=== PATIENT | male | born 1935 | race Caucasian/White ===

== ENCOUNTER → 2016-12-04 | Outpatient (CLI) | payer MEDICARE, BC ==
[~2016-12-04] VITALS: Ht 172.7 cm; Wt 87.1 kg
[~2016-12-04] MED LIST: ASPIRIN 81M81 MG/TA2 PO; COLACE 100100 MG/CAP PO; GLUCOSAMINE & C1 CA1 PO; MULTIPLE VITAMI1 CAP PO; MULTIPLE VITAMI1 TA4 PO; NORCO 325 MG-51 TAB PO; PREVAGEN PO; PYRIDIUM200 M1 PO; VITAMIN C500 MG PO; [UNRECOGNIZED DRUG - OTHER] PO
[2016-12-04 09:09] VITALS: BP 137/79; PULSE 57
[2016-12-04 10:45] VITALS: BP 158/91; PULSE 56
== END ==
LOC: COL.RAD 11-22 09:00
DX: M54.5 Low back pain (principal); M51.36 Other intervertebral disc degeneration, lumbar region
CPT/HCPCS: J3301

== ENCOUNTER 2019-10-11 16:25 | Inpatient (IN) | payer MEDICARE, BC ==
[~2019-10-11] VITALS: Ht 172.7 cm; Wt 83.5 kg
[2019-10-11 17:10] LABS: BASO % 0.7 % (0.0-2.0); EOS # 0.2 (0.0-0.7); GRAN # 2.6 (1.4-6.5); GRAN % 47.1 % (42.2-75.2); HEMATOCRIT 43.2 % (42.0-52.0); HEMOGLOBIN 13.9 g/dl (13.5-18.0); LYMPH # 1.9 (1.2-3.4); MEAN CELL VOLUME 97 fl (80.0-100.0); MEAN CORPUSCULAR HEMOGLOBIN 31 pg (27.0-31.0); MEAN CORPUSCULAR HGB CONC 32 g/dl (33.0-37.0); MEAN PLATELET VOLUME 9.6 fl (7.4-10.4); MONO # 0.7 (0.1-0.6); PLATELET COUNT 244 K/mm3 (130-400); RED BLOOD COUNT 4.47 M/mm3 (4.20-5.60); REDCELL DISTRIBUTION WIDTH-CV 13.9 % (11.5-14.5)
[2019-10-11 17:26] LABS: ALANINE AMINOTRANSFERASE 22 U/L (21-72); ALBUMIN 4.2 gm/dL (3.5-5.0); ALKALINE PHOSPHATASE 74 U/L (50-136); ANION GAP 9 mmol/L (7-16); AST,SGOT 25 U/L (15-37); BILIRUBIN,TOTAL 0.5 mg/dL (0.0-1.0); BLOOD UREA NITROGEN 28 mg/dL (9-20); CALCIUM 9.3 mg/dL (8.4-10.2); CARBON DIOXIDE 23 mmol/L (22-30); CHLORIDE 108 mmol/L (98-107); CREATININE, serum 1.06 (0.66-1.25); GLUCOSE 117 mg/dL (74-106); LIPASE 102 U/L (23-300); POTASSIUM 4.3 mmol/L (3.4-5.0); SODIUM 140 mmol/L (137-145); TOTAL PROTEIN 7.1 gm/dL (6.4-8.2)
[2019-10-11 17:42] LABS: TROPONIN-I < 0.012 ng/mL (0.000-0.035)
--- NOTE | 2019-10-11 22:15 | NUR ---
Patient admitted at room via stretcher from ER. With ongoing IVF at right forearm, infusing NS at 125ml/hr. Assessment done. Patient denies any chest pain. Informed patient regarding heparin drip. Call button within reach. Urinal given to patient to measure his output.
[2019-10-11 22:38] VITALS: BP 139/77; PULSE 58; TEMP 98
[2019-10-11 23:00] VITALS: BP 135/73; PULSE 58; TEMP 98.2
[2019-10-11 23:32] LABS: PARTIAL THROMBOPLASTIN TIME 49.8 SECONDS (26.0-37.0)
[2019-10-12] VITALS (13 sets, daily range): BP systolic 112–148; BP diastolic 42–96; PULSE 48–85; TEMP 97.3–98.7
--- NOTE | 2019-10-12 05:10 | NUR ---
Patient verbalizes of having lower back pain. He states it could be from sleeping on the bed. He had a pain score of 8/10. PRN Tylenol given. Patient denies any chest pain. Monitored vital signs every hour.
--- NOTE | 2019-10-12 06:00 | NUR ---
Patient states decrease of pain and the medicine was actually helping him with his back pain.
[2019-10-12 06:47] LABS: CHOLESTEROL 174 mg/dL (120-200); CHOLESTEROL RISK RATIO 3.2; HDL CHOLESTEROL 53 mg/dL; LDL CHOLESTEROL 112 mg/dL; MAGNESIUM 1.8 mg/dL (1.6-2.3); TRIGLYCERIDE 46 mg/dL
[2019-10-12 07:01] LABS: TROPONIN-I < 0.012 ng/mL (0.000-0.035)
--- NOTE | 2019-10-12 10:13 | NUR ---
Initial visit; Patient thanked Vet Tech for stopping and letting him know spiritual care is available and offering God's blessings.
--- NOTE | 2019-10-12 13:55 | NUR ---
Spacecraft Systems Engineer met with patient and patient's , Geena (ph#[phone]) to discuss discharge planning. Patient lives outside of [place] with his and three dogs. Patient sees Dr. Leroy for primary care and obtains medications from [facility] in [place] with no difficulties. Patient has a CPAP at home but does not use it. Patient has Advance Directives which designate Geena as DPOA-HC, but patient states he did not bring a copy to the hospital. Patient plans to return home upon discharge and has no concerns at this time.
--- NOTE | 2019-10-12 17:00 | NUR ---
1647: CALL FROM LAB REPORTING HEPARIN XA THAT WAS DRAWN AT 1442 RESULTED AT 0.99. HEPARIN DRIP STOPPED X 1 HOUR AND WILL DECREASE BY 2ML/HR PER HIGH DOSE HEPARIN DRIP PROTOCOL.
--- NOTE | 2019-10-12 19:45 | NUR ---
Shift assessment complete. Pt resting in bed, awake, a&o, cooperative c cares. Pt denies pain, SOB or any other c/o. IV patent; heparin gtt per orders. Tele in place. Pt denies needs. Call light in reach, will continue to monitor.
[2019-10-13] VITALS (7 sets, daily range): BP systolic 119–141; BP diastolic 70–89; PULSE 57–86; TEMP 97.6–98.5
[2019-10-13 07:03] LABS: HEMATOCRIT 46.8 % (42.0-52.0); HEMOGLOBIN 15.3 g/dl (13.5-18.0); MEAN CELL VOLUME 95 fl (80.0-100.0); MEAN CORPUSCULAR HEMOGLOBIN 31 pg (27.0-31.0); MEAN CORPUSCULAR HGB CONC 33 g/dl (33.0-37.0); MEAN PLATELET VOLUME 9.6 fl (7.4-10.4); PLATELET COUNT 250 K/mm3 (130-400); RED BLOOD COUNT 4.94 M/mm3 (4.20-5.60); REDCELL DISTRIBUTION WIDTH-CV 13.8 % (11.5-14.5)
--- NOTE | 2019-10-13 07:41 | NUR ---
HEPARIN XA RESULTED @ 0.54. PER HIGH DOSE PROTOCOL NO CHANGE. 2 CONSEC. LABS WNR. HEPARIN XA RECHECK 10/14/19 @ 0500. HEPARIN DRIP CONTIUES INFUSING @ 12.5ML/HR.
[2019-10-13 10:00] LABS: CALCIUM 9.3 mg/dL (8.4-10.2); CREATININE, serum 1.03 (0.66-1.25); POTASSIUM 3.8 mmol/L (3.4-5.0)
--- NOTE | 2019-10-13 11:56 | NUR ---
PT WALKED APPROX 300 FEET ON RA W/O COMPLAINT. JIMENEZ EXERCISE VERY WELL.
[2019-10-13] MEDS ORDERED: ELIQUIS 5MG PO (16:09)
[2019-10-13] MEDS ORDERED: LASIX 20MG TABL20 MG PO (16:10)
--- NOTE | 2019-10-13 18:05 | NUR ---
1800: PATIENT DC TO HOME VIA PRIVATE VEHICLE ACCOMPANIED BY . LEFT UNIT VIA WC. PRINTED DC INSTRUCTIONS TO INCLUDE MEDICATIONS AND FOLLOW UP REVEIWED WITH PATIENT.
== END 2019-10-13 18:00 | disposition home or self-care (01) | DRG 308 ==
LOC: COL.ER 16:25 → MEDICAL 20:17
PROVIDERS: Emergency Medicine; Physician Assistant; ADMIT Internal Medicine
DX: I48.91 Unspecified atrial fibrillation (principal); I50.33 Acute on chronic diastolic (congestive) heart failure; R00.1 Bradycardia, unspecified; I27.20 Pulmonary hypertension, unspecified; I71.2 Thoracic aortic aneurysm, without rupture; G47.33 Obstructive sleep apnea (adult) (pediatric); I08.1 Rheumatic disorders of both mitral and tricuspid valves; Z88.6 Allergy status to analgesic agent; Z79.82 Long term (current) use of aspirin
CPT/HCPCS: 99222-AI; 99233-AI; 99239; A9500; J1644; J1650; J1940; J2785; J7030; Q9967

== ENCOUNTER → 2020-11-08 | Outpatient (CLI) | payer MEDICARE, BC ==
[~2020-11-08] MED LIST changes: +ELIQUIS 5MG PO; +LASIX 20MG TABL20 MG PO
== END ==
LOC: COL.LAB 08:00 → EDSTATUS 11-14 08:00 → COL.CAR 11-14 08:00
DX: Z20.822 Contact with and (suspected) exposure to COVID-19 (principal)